=== PATIENT | male | born 1985 | race Caucasian/White ===

== ENCOUNTER 2017-07-28 02:05 | Emergency (ER) | payer OTHER ==
[2017-07-28] MEDS ORDERED: IPRATROPIUM/ALBUTEROL 3 ML NEB INH STA (02:10)
[2017-07-28] MEDS ORDERED: predniSONE 20 MG TABLET PO STA (02:10)
[2017-07-28] MEDS ORDERED: IPRATROPIUM/ALBUTEROL 3 ML NEB INH ONE (02:20)
[2017-07-28] MEDS ORDERED: predniSONE 20 MG TABLET ONE (02:56)
--- NOTE | 2017-07-28 03:06 | XRAY Preliminary Report ---
Exam: XR Chest 2 View PA/LAT IMPRESSION: Normal 2-view chest radiography. [facility] SITE ID: [id number]
--- NOTE | 2017-07-28 03:09 | XRAY Report ---
EXAM: CHEST RADIOGRAPHY EXAM DATE: 07/28/2017 02:55 AM. CLINICAL HISTORY: Wheezing and cough, no real history of asthma. COMPARISON: None. TECHNIQUE: 2 views. FINDINGS: Lungs/Pleura: No focal opacities evident. No pleural effusion. No pneumothorax. Normal volumes. Mediastinum: Heart and mediastinal contours are unremarkable. Other: None. IMPRESSION: Normal 2-view chest radiography. [facility] Referring Provider Line: [phone] SITE ID: [id number]
[2017-07-28] MEDS ORDERED: ALBUTEROL NEB 2.5 MG/3 ML INH STA (03:13)
[2017-07-28] MEDS ORDERED: ALBUTEROL NEB 2.5 MG/3 ML INH ONE (03:21)
--- NOTE | 2017-07-28 04:08 | ED Physician Documentation ---
PD HPI DYSPNEA - Stated complaint Stated Complaint: DIFF BREATHING - Chief complaint Chief Complaint: Resp - History obtained from History obtained from: Patient - History of Present Illness Timing - onset: Yesterday Timing - onset during: Rest, Light activity Timing - details: Gradual onset, Still present Inciting event(s): Exposure (ie smoke) Worsened by: Allergens, Smoke Associated symptoms: Cough, Wheezing Similar symptoms before: Has not had sx before Recently seen: Not recently seen - Additional information Additional information: Patient is a 31 year old male with a history of distant asthma but never has owned an inhaler who is presenting to the emergency department for shortness of breath and wheezing. patient states that it started yesterday and has become progressively worse. there [place] going [place] the [place]. Review of Systems Constitutional: denies: Fever, Chills Eyes: denies: Decreased vision, Photophobia, Discharge, Irritation Ears: denies: Ear pain Nose: denies: Rhinorrhea / runny nose, Congestion Throat: denies: Sore throat Cardiac: denies: Chest pain / pressure, Palpitations Respiratory: reports: Dyspnea, Cough, Wheezing GI: denies: Abdominal Pain, Nausea, Vomiting : reports: Frequency, Reviewed and negative Skin: denies: Rash Musculoskeletal: denies: Extremity pain, Extremity swelling Neurologic: denies: Headache, Head injury Immunocompromised: denies: Immunocompromised PD PAST MEDICAL HISTORY - Past Medical History Past Medical History: No - Past Surgical History Past Surgical History: No - Present Medications Home Medications: Ambulatory Orders Medication Instructions Recorded Confirmed Albuterol Sulfate [Proventil Hfa 1 - 2 puffs INH Q4H PRN #1 inhaler 07/28/17 Inhaler] Prednisone 40 mg PO DAILY 5 Days 07/28/17 - Allergies Allergies/Adverse Reactions: Allergies Allergy/AdvReac Type Severity Reaction Status Date / Time No Known Drug Allergies Allergy Verified 07/28/17 02:17 - Social History Does the pt smoke?: No Smoking Status: Never smoker Does the pt drink ETOH?: No Does the pt have substance abuse?: No - Immunizations Immunizations are current?: Yes - POLST Patient has POLST: No PD ED PE NORMAL - Vitals Vital signs reviewed: Yes - General General: Alert and oriented X 3, Well developed/nourished - HEENT HEENT: Atraumatic, PERRL, Pharynx benign - Neck Neck: Supple, no meningeal sign - Cardiac Cardiac: RRR, No murmur - Abdomen Abdomen: Soft, Non distended - Derm Derm: Normal color, No rash - Neuro Neuro: Alert and oriented X 3, No motor deficit, No sensory deficit, Normal speech - Psych Psych: Normal mood, Normal affect PD ED PE EXPANDED - Respiratory Respiratory: Wheezing, Right upper lobe, Right middle lobe, Left upper lobe. No : Accessory mm use, Retractions Results - Vitals Vitals: Vital Signs - 24 hr 07/28/17 07/28/17 07/28/17 02:10 02:15 03:00 Temperature 37.2 C Heart Rate 65 65 Respiratory 24 18 Rate Blood Pressure 141/86 H O2 Saturation 92 91 L 07/28/17 03:15 Temperature Heart Rate 65 Respiratory 18 Rate Blood Pressure O2 Saturation Oxygen O2 Source Room air - Rads (name of study) chest x-ray Radiology: Final report received (no acute disease process) PD MEDICAL DECISION MAKING - ED course Complexity details: reviewed old records, reviewed results, re-evaluated patient , considered differential, d/w patient ED course: Patient was seen and examined at bedside. Patient had active wheezing bilaterally and was hypoxic. Patient was treated with three duonebs and prednisone. Patient was sent for imaging. When patient returned from imaging patient was found to still be wheezing, but no abnormalities on x ray. patient was treated with three additional albuterol treatments. Patient responded well to the therapy and the hypoxia resolved and patient only had minimal wheeze. Patient was educated on the spacer. prescriptions were written and patient was stable for discharge with outpatient follow up. Departure - Departure Disposition: 01 Home, Self Care Clinical Impression: Reactive airway disease that is not asthma Condition: Good Instructions: ED Reactive Airway Disease Follow-Up: primary,care provider [Other] - Within 3 Days Prescriptions: Prednisone 40 mg PO DAILY 5 Days Albuterol Sulfate [Proventil Hfa Inhaler] 1 - 2 puffs INH Q4H PRN #1 inhaler PRN Reason: Shortness Of Air/Wheezing Comments: Your symptoms today are being caused by reactive airway disease. Your symptoms are likely in response to the smoke. you will be on steroids for the next 5 days. You should use your inhaler every 2 hours as needed. You should follow up with your base doctor this week. You may return to the emergency department at any time for new, worsening or uncontrollable symptoms. Forms: Activity restrictions
[2017-07-28 04:21] VITALS: BP 116/57
== END 2017-07-28 04:22 | disposition home or self-care (01) ==
LOC: ED 02:05
DX: T59.811A Toxic effect of smoke, accidental (unintentional), initial encounter (principal); J68.3 Other acute and subacute respiratory conditions due to chemicals, gases, fumes and vapors
CPT/HCPCS: 71020; 94640; 94664; 99283; J7512; J7613; J7620